=== PATIENT | male | born 1970 | race Caucasian/White ===

== ENCOUNTER → 2017-08-07 | Outpatient (CLI) | payer OTHER | LOC: LAB SHORT 17:43 → LAB 17:43 | PROVIDERS: Hospitalist | DX: N40.1 Benign prostatic hyperplasia with lower urinary tract symptoms (principal) | CPT/HCPCS: G0103 ==

== ENCOUNTER → 2022-03-09 | Outpatient (CLI) | payer OTHER ==
[2022-03-09 14:43] LABS: Influenza A, PCR NEGATIVE (NEGATIVE); Influenza B, PCR NEGATIVE (NEGATIVE); Resp Syncytial Virus, PCR NEGATIVE (NEGATIVE); SARS-Cov-2 (COVID-19) PCR, MMC NEGATIVE (NEGATIVE)
== END | disposition home or self-care (01) ==
LOC: LAB 10:58 → LAB SHORT 10:58
PROVIDERS: Hospitalist
DX: J02.9 Acute pharyngitis, unspecified (principal)
CPT/HCPCS: 0241U

== ENCOUNTER 2022-10-05 13:49 | Day surgery (SDC) | payer OTHER ==
[~2022-10-05] VITALS: Ht 172.7 cm; Wt 113.4 kg
[2022-10-05] MEDS ORDERED: TELM80 (14:23)
[2022-10-05] MEDS ORDERED: OMEP20ER (14:23)
[2022-10-05] MEDS ORDERED: ABILIFY MYCITE10 M2 (14:24)
[2022-10-05] MEDS ORDERED: PRAVASTATIN SOD10 MG (14:24)
[2022-10-05] MEDS ORDERED: ERGO400 (14:24)
[2022-10-05] MEDS ORDERED: MELATONIN1 M1 (14:25)
[2022-10-05] MEDS ORDERED: SLEEP AID (14:25)
[2022-10-05] MEDS ORDERED: Saw Palmetto160 MG (14:25)
[2022-10-05] MEDS ORDERED: MULTIPLE VITAM1 EACH (14:26)
[2022-10-05 17:03] VITALS: BP 125/84
== END 2022-10-05 16:22 | disposition home or self-care (01) ==
LOC: ORSCSDS 13:49
PROVIDERS: Specialist
PROC: 0DBK8ZX Excision of Ascending Colon, Via Natural or Artificial Opening Endoscopic, Diagnostic (ICD-10-PCS; principal; 2022-10-05 15:00)
PROC: 0DBL8ZX Excision of Transverse Colon, Via Natural or Artificial Opening Endoscopic, Diagnostic (ICD-10-PCS; principal; 2022-10-05 15:00)
PROC: 0DBN8ZX Excision of Sigmoid Colon, Via Natural or Artificial Opening Endoscopic, Diagnostic (ICD-10-PCS; principal; 2022-10-05 15:00)
PROC: 0DBM8ZX Excision of Descending Colon, Via Natural or Artificial Opening Endoscopic, Diagnostic (ICD-10-PCS; principal; 2022-10-05 15:00)
DX: Z12.11 Encounter for screening for malignant neoplasm of colon (principal); D12.2 Benign neoplasm of ascending colon; K51.40 Inflammatory polyps of colon without complications; D12.5 Benign neoplasm of sigmoid colon; D12.4 Benign neoplasm of descending colon; G47.33 Obstructive sleep apnea (adult) (pediatric); I10 Essential (primary) hypertension; E78.5 Hyperlipidemia, unspecified; E66.9 Obesity, unspecified; Z68.38 Body mass index [BMI] 38.0-38.9, adult; Z79.899 Other long term (current) drug therapy
CPT/HCPCS: 88305; J0461; J2001; J2405; J2704; J7120; Q9968